=== PATIENT | male | born 1950 | race Caucasian/White ===

== ENCOUNTER → 2025-04-12 | Outpatient (CLI) | payer OTHER, MEDICARE ==
[~2025-04-12] MED LIST: IODINE/POTASSIUM IODIDE 14 ML BOTTLE ONE
--- NOTE | 2025-04-13 22:09 | NM ---
EXAMINATION TYPE: NM DatScan Brain SPECT DATE OF EXAM: 04/13/2025 COMPARISON: NONE CLINICAL INDICATION: Male, 75 years old with history of G20.A1 Parkinson's disease; TECHNIQUE: 10 drops of Lugol's solution was administered 1 hour prior to injection as a thyroid bloc tanvi agent. After the administration of 4.3 mCi I-123 Ioflupane DaTscan. Images obtained [address] injection[address] SPECT images of the brain were acquired with axial and coronal reconstructions. FINDINGS: The DaTSCAN demonstrates normal uptake of tracer throughout the striata. Consequently there is no evidence of loss of the pre-synaptic dopaminergic terminals on this investigation. IMPRESSION: This normal appearance is against a diagnosis of idiopathic Parkinson?s disease(PD) or a Parkinsonia n syndrome(PS) and is seen in healthy individuals and also patients with essential tremor(ET),drug induced parkinsonism, and vascular pseudo-parkinsonism. [facility], , 04/13/2025 10:07 PM
== END | disposition home or self-care (01) ==
LOC: RADNMMAIN 10:42
PROVIDERS: ATTEND Psychiatry & Neurology Neurology
DX: G20.A1 Parkinson's disease without dyskinesia, without mention of fluctuations (principal)
CPT/HCPCS: 78803; A9584